=== PATIENT | male | born 1950 | race Caucasian/White ===

== ENCOUNTER 2019-05-08 02:01 | Emergency (ER) | payer MEDICARE ==
[~2019-05-08 02:01] MED LIST: niCARdipine 20 MG in SODIUM CHLORIDE 0.9% 192 ML IV ONE
[2019-05-08] MEDS ORDERED: SODIUM CHLORIDE 0.9% 1,000 ML IV STA (02:03)
[2019-05-08] MEDS ORDERED: ETOMIDATE 2 MG/ML 10 ML VIAL IVP STA (02:14)
[2019-05-08] MEDS: LABETALOL 5 MG/ML VIAL MDV IVP ONE ×2 (02:15→02:40)
[2019-05-08] MEDS ORDERED: ROCURONIUM BROMIDE 10 MG/ML 5 ML VIAL IV ONE (02:15)
--- NOTE | 2019-05-08 02:19 | CT ---
EXAMINATION TYPE: CT brain wo con DATE OF EXAM: 05/08/2019 COMPARISON: None HISTORY: stroke CT DLP: 1215.4 mGycm Automated exposure control for dose reduction was used. Multiple axial sections were obtained of the brain without contrast. There is large acute hemorrhage involving the left cerebral hemisphere in the subcutaneous pleural sp rashard. Hemorrhage measures up to 15 mm in thickness. There is midline shift to the right side. There is effacement of the left lateral ventricle. Third ventricle is shifted to the right side. There is eff acement of the third ventricle. Cerebellum is intact. The perimesencephalic cisterns appear fairly normal. I see no evidence of uncal herniation. The calvarium is intact. I see no definite cerebral parenchymal hemorrhage. IMPRESSION: Large left hemisphere acute subdural hemorrhage with mass effect. This exam was discussed with Dr. Torres at 2:30 AM.
--- NOTE | 2019-05-08 02:20 | ED ---
Altered Mental Status HPI - General Stated Complaint: Weakness Time Seen by Provider: 05/08/19 02:02 Source: patient Mode of arrival: EMS Limitations: no limitations - History of Present Illness Initial Comments: Parrish is a 68yo M with a past medical history of atrial fibrillation on Coumadin. Patient is brought to the ER today via ambulance for evaluation of a headache and now unresponsiveness. History is provided by the and EMS. reports that has been worked afternoon shifting returned home around 9 PM. At that time he fell asleep in his recliner, she states that he usually snores very loud to she prefer he sleep on his recliner rather than in their bedroom. She reports that she heard him wake around midnight and began complaining of a headache. Headache progressively worsened at which time he decided to come to the hospital and 911 was called around 1:45 in the morning. EMS arrived on scene the patient was awake alert oriented and speaking to them but complaining of a severe headache. In route to the hospital upon laying down the patient became unresponsive but was still breathing spontaneously, was noted to be profoundly hypertensive. Of note the reports that the patient's sister of a spontaneous subdural hemorrhage in 2015. - Related Data Home Medications Medication Instructions Recorded Confirmed Carvedilol [Coreg] 12.5 mg PO DAILY 07/14/15 07/14/15 Lisinopril-Hctz 10-12.5 mg 1 tab PO DAILY 07/14/15 07/14/15 [Zestoretic 10-12.5] Multivitamin [Men's Multi-Vitamin] 1 each PO DAILY 07/14/15 07/14/15 Omeprazole 20 mg PO DAILY 07/14/15 07/14/15 Pravastatin Sodium [Pravachol] 40 mg PO DAILY 07/14/15 07/14/15 Rivaroxaban [Xarelto] 20 mg PO DAILY 07/14/15 07/14/15 metFORMIN HCL 1,000 mg PO DAILY 07/14/15 07/14/15 Allergies Allergy/AdvReac Type Severity Reaction Status Date / Time IVP dye Allergy Rash/Hives Uncoded 07/14/15 06:37 Review of Systems ROS Statement: Those systems with pertinent positive or pertinent negative responses have been documented in the HPI. ROS Other: All systems not noted in ROS Statement are negative. Past Medical History Past Medical History: Atrial Fibrillation, Diabetes Mellitus, Hypertension History of Any Multi-Drug Resistant Organisms: None Reported Past Surgical History: Back Surgery Past Psychological History: No Psychological Hx Reported Smoking Status: Former smoker Past Alcohol Use History: None Reported, Rare Past Drug Use History: None Reported General Exam - General Exam Comments Initial Comments: Physical Exam GENERAL: Patient is well-developed and well-nourished. Unresponsive HENT: Normocephalic, Atraumatic. Upper dentures not in place, there is a laceration to the gums concerning for patient possibly having had some seizure activity. EYES: Right eye dilated 5mm, non-reactibe Left eye 3mm, reactive PULMONARY: Vel arriaga respirations CTAB CARDIOVASCULAR: Irregularly irregular, initially bradycardic however then tachycardic ABDOMEN: Soft and nontender with normal bowel sounds. SKIN: Pale : Normal external genitalia Patient incontinent of urine NEUROLOGIC: Unresponsive GCS 3 MUSCULOSKELETAL: No obvious injuries PSYCHIATRIC: Unable to assess Limitations: no limitations Course Vital Signs 05/08/19 05/08/19 05/08/19 02:06 02:15 02:30 Temperature 97.6 F Pulse Rate 110 H 90 98 Respiratory 19 18 18 Rate Blood Pressure 176/125 191/126 169/123 O2 Sat by Pulse 98 100 100 Oximetry 05/08/19 05/08/19 05/08/19 02:45 03:00 03:15 Temperature Pulse Rate 88 92 79 Respiratory 17 16 16 Rate Blood Pressure 141/90 132/88 134/77 O2 Sat by Pulse 100 100 100 Oximetry 05/08/19 05/08/19 03:30 03:45 Temperature Pulse Rate 90 90 Respiratory 16 16 Rate Blood Pressure 113/82 112/86 O2 Sat by Pulse 100 100 Oximetry Procedures - Intubation Sedative: Etomidate Paralytic: Rocuronium Laryngoscope: Jayleen Size: 4 Assist Device Used: fiber optic device ET Tube Size: 8 ET Tube Uncuffed: No Tube Secured Depth (cm): 25 Tube Secured Location: teeth Tube Placement Confirmation: visualized tube passing through cords, equal breath sounds bilaterally, no breath sounds over epigastrium, confirmation by capnometry Patient Tolerated Procedure: well, no complications Medical Decision Making - Medical Decision Making Patient was seen and evaluated immediately upon arrival to the emergency department Primary survey was performed with patient on the EMS gurney decision was made to activate a code stroke patient was transferred directly to computed tomography scan as there is a high concern for acute cranial hemorrhagic event due to the patient's profound hypertension, bradycardia irregular breathing and unresponsiveness While lying flat patient was noted to be profoundly hypertensive and bradycardic I evaluated the computed tomography scan as it was done which is concerning for an acute subdural hemorrhage The patient was transferred back to the resuscitation bay and prepared for intubation due to decreased mental status Neurosurgery at [facility] was paged RSI medications etomidate and rocuronium were used Patient was intubated without difficulty, patient had no episodes of hypoxia but was noted to become quite tachycardic during intubation Head of the bed was elevated after intubation Attempts were made to place an OG however were unsuccessful and patient was noted to have some significant bleeding, at this time we will refrain Patient care was discussed with the stroke physician, advised that we have an acute atraumatic subdural on patient on Coumadin. Considering the family history he recommended CTA be obtained. IV labetalol push dose was given for hypertension Cardine drip was ordered for blood pressure management Vitamin K was ordered to reverse anticoagulation Patient was noted to have some movement of the upper extremities, uncertain if this is seizure activity or reaction to intubation Propofol for sedation Patient care was discussed with the ER physician at [facility] Dr. Abad who accepts transfer once the patient has been accepted by neurosurgery Patient care was discussed with neurosurgeon Dr. Lynch, patient's history, medications, vital signs, CT findings and neurologic status were discussed. He agrees at this time the patient is critical. Agrees with management thus far and recommends transfer for surgical intervention. CT images were evaluated by Dr. Lynch prior to transfer. Patient's blood pressure improved with Cardene and propofol, however patient was noted to have some hypotension, both Cardine and propofol were titrated down patient remained appropriately sedated. ABG was obtained and was within normal limits, ventilator settings will continue as ordered At the time of transfer patient's blood pressure had improved, heart rate was stable in the 80s to 100s, neuro status remained unchanged, patient was recei ving Cardene and propofol. Patient transferred to [facility] priority one in critical condition. - Lab Data Result diagrams: 05/08/19 02:17 05/08/19 02:17 Lab Results 05/08/19 05/08/19 05/08/19 Range/Units 02:17 02:17 02:17 WBC 13.9 H (3.8-10.6) k/uL RBC 4.81 (4.30-5.90) m/uL Hgb 13.7 (13.0-17.5) gm/dL Hct 44.7 (39.0-53.0) % MCV 92.7 (80.0-100.0) fL MCH 28.4 (25.0-35.0) pg MCHC 30.6 L (31.0-37.0) g/dL RDW 13.4 (11.5-15.5) % Plt Count 277 (150-450) k/uL Neutrophils % 71 % Lymphocytes % 21 % Monocytes % 4 % Eosinophils % 3 % Basophils % 0 % Neutrophils # 9.8 H (1.3-7.7) k/uL Lymphocytes # 2.9 (1.0-4.8) k/uL Monocytes # 0.6 (0-1.0) k/uL Eosinophils # 0.4 (0-0.7) k/uL Basophils # 0.1 (0-0.2) k/uL PT 32.0 H (9.0-12.0) sec INR 3.3 H (<1.2) APTT 29.6 (22.0-30.0) sec Sample Site ABG pH (7.35-7.45) ABG pCO2 (35-45) mmHg ABG pO2 (83-108) mmHg ABG HCO3 (21-25) mmol/L ABG Total CO2 (19-24) mmol/L ABG O2 Saturation (94-97) % ABG Base Excess mmol/L Rodriguez Test FiO2 % Sodium 141 (137-145) mmol/L Potassium 4.1 (3.5-5.1) mmol/L Chloride 103 (98-107) mmol/L Carbon Dioxide 26 (22-30) mmol/L Anion Gap 12 mmol/L BUN 18 (9-20) mg/dL Creatinine 0.96 (0.66-1.25) mg/dL Est GFR (CKD-EPI)AfAm >90 (>60 ml/min/1.73 sqM) Est GFR (CKD-EPI)NonAf 83 (>60 ml/min/1.73 sqM) Glucose 226 H (74-99) mg/dL POC Glucose (mg/dL) (75-99) mg/dL POC Glu Emergency Spill Response Technician ID Calcium 8.5 (8.4-10.2) mg/dL Total Bilirubin 0.6 (0.2-1.3) mg/dL AST 40 (17-59) U/L ALT 23 (4-49) U/L Alkaline Phosphatase 65 (38-126) U/L Total Creatine Kinase (55-170) U/L CK-MB (CK-2) (0.0-2.4) ng/mL CK-MB (CK-2) Rel Index Troponin I (0.000-0.034) ng/mL Total Protein 7.4 (6.3-8.2) g/dL Albumin 4.1 (3.5-5.0) g/dL 05/08/19 05/08/19 05/08/19 Range/Units 02:17 03:00 03:13 WBC (3.8-10.6) k/uL RBC (4.30-5.90) m/uL Hgb (13.0-17.5) gm/dL Hct (39.0-53.0) % MCV (80.0-100.0) fL MCH (25.0-35.0) pg MCHC (31.0-37.0) g/dL RDW (11.5-15.5) % Plt Count (150-450) k/uL Neutrophils % % Lymphocytes % % Monocytes % % Eosinophils % % Basophils % % Neutrophils # (1.3-7.7) k/uL Lymphocytes # (1.0-4.8) k/uL Monocytes # (0-1.0) k/uL Eosinophils # (0-0.7) k/uL Basophils # (0-0.2) k/uL PT (9.0-12.0) sec INR (<1.2) APTT (22.0-30.0) sec Sample Site rbrac ABG pH 7.39 (7.35-7.45) ABG pCO2 44 (35-45) mmHg ABG pO2 281 H (83-108) mmHg ABG HCO3 27 H (21-25) mmol/L ABG Total CO2 28 H (19-24) mmol/L ABG O2 Saturation 98.3 H (94-97) % ABG Base Excess 1.5 mmol/L Rodriguez Test Yes FiO2 100 % Sodium (137-145) mmol/L Potassium (3.5-5.1) mmol/L Chloride (98-107) mmol/L Carbon Dioxide (22-30) mmol/L Anion Gap mmol/L BUN (9-20) mg/dL Creatinine (0.66-1.25) mg/dL Est GFR (CKD-EPI)AfAm (>60 ml/min/1.73 sqM) Est GFR (CKD-EPI)NonAf (>60 ml/min/1.73 sqM) Glucose (74-99) mg/dL POC Glucose (mg/dL) 225 H (75-99) mg/dL POC Glu Emergency Spill Response Technician ID Sharath Eden Calcium (8.4-10.2) mg/dL Total Bilirubin (0.2-1.3) mg/dL AST (17-59) U/L ALT (4-49) U/L Alkaline Phosphatase (38-126) U/L Total Creatine Kinase 108 (55-170) U/L CK-MB (CK-2) 1.3 (0.0-2.4) ng/mL CK-MB (CK-2) Rel Index 1.2 Troponin I <0.012 (0.000-0.034) ng/mL Total Protein (6.3-8.2) g/dL Albumin (3.5-5.0) g/dL Critical Care Time Critical Care Time: Yes Total Critical Care Time: 90 Critical Care Time: Critical care time was exclusive of separately billable procedures and treating other patients and teaching time. Critical care was necessary to treat or prevent imminent or life-threatening deterioration. Given the critical condition in which the patient arrived, the patient was i mmediately assessed by myself and the nurse, and cardiac monitoring initiated due to the potential for rapid decompensation of the patient's clinical condition. During the course of the patients stay, I spent a considerable amount of time at the bedside performing serial re-evaluations of the patient's hemodynamic and clinical status because of the recognized potential threat to life or limb in this condition. I then had a chance to review not only all of the available current laboratory and radiographic studies obtained today, but I also reviewed old records available to me at the time. Additionally, any ancillary information available including agricultural chemist records were reviewed. Sequential vital signs were obtained. Disposition Clinical Impression: Subdural hemorrhage Disposition: OTHER INSTITUTION NOT DEFINED Condition: Critical Referrals: Julia Bojorquez DO [Primary Care Provider] - 1-2 days - Out of Hospital Transfer - Req. Specs Out of Hospital Transfer - Requested Specifics: Other Emergency Center ([facility])
[2019-05-08] MEDS ORDERED: methylPREDNISolone SOD SUCCI 125 MG/2 ML VIAL IV STA (02:22)
[2019-05-08] MEDS ORDERED: diphenhydrAMINE 50 MG/ML 1 ML VIAL IVP STA (02:22)
[2019-05-08] MEDS ORDERED: FAMOTIDINE 20 MG/2 ML VIAL IV STA (02:22)
[2019-05-08 02:36] LABS: Basophils # (A) 0.1 k/uL (0-0.2); Basophils % (A) 0 %; Eosinophils # (A) 0.4 k/uL (0-0.7); Eosinophils % (A) 3 %; HCT 44.7 % (39.0-53.0); HGB 13.7 gm/dL (13.0-17.5); Lymphocytes # (A) 2.9 k/uL (1.0-4.8); Lymphocytes % (A) 21 %; MCH 28.4 pg (25.0-35.0); MCHC 30.6 g/dL (31.0-37.0); MCV 92.7 fL (80.0-100.0); Monocytes # (A) 0.6 k/uL (0-1.0); Monocytes % (A) 4 %; Neutrophils # (A) 9.8 k/uL (1.3-7.7); Neutrophils % (A) 71 %; Platelet Count 277 k/uL (150-450); RBC 4.81 m/uL (4.30-5.90); RDW 13.4 % (11.5-15.5); WBC 13.9 k/uL (3.8-10.6)
[2019-05-08] MEDS ORDERED: PHYTONADIONE 10 MG in SODIUM CHLORIDE 0.9% 50 ML IVPB ONE (02:40)
[2019-05-08 02:46] LABS: ALT 23 U/L (4-49); AST 40 U/L (17-59); African American GFR (CKD) >90 (>60 ml/min/1.73 sqM); Albumin 4.1 g/dL (3.5-5.0); Alkaline Phosphatase 65 U/L (38-126); Anion Gap 12 mmol/L; Blood Urea Nitrogen 18 mg/dL (9-20); Calcium 8.5 mg/dL (8.4-10.2); Carbon Dioxide 26 mmol/L (22-30); Chloride 103 mmol/L (98-107); Creatine Kinase 108 U/L (55-170); Glucose 226 mg/dL (74-99); INR 3.3 (<1.2); Non-African American GFR(CKD) 83 (>60 ml/min/1.73 sqM); Partial Thromboplastin Time 29.6 sec (22.0-30.0); Sodium 141 mmol/L (137-145); Total Bilirubin 0.6 mg/dL (0.2-1.3); Total Protein 7.4 g/dL (6.3-8.2)
[2019-05-08 02:58] LABS: Creatine Kinase MB 1.3 ng/mL (0.0-2.4); Troponin I <0.012 ng/mL (0.000-0.034)
--- NOTE | 2019-05-08 03:00 | XR ---
EXAMINATION TYPE: XR chest 1V portable DATE OF EXAM: 05/08/2019 COMPARISON: NONE HISTORY: Respiratory failure TECHNIQUE: Single view FINDINGS: Endotracheal tube is 5.5 cm from the jon. Lungs are clear of consolidation. There is coa rsening of the lung markings. There are chest leads. There is no pleural effusion. IMPRESSION: No heart failure. Mild pulmonary fibrotic changes.
[2019-05-08 03:01] LABS: Glucose,Whole Blood 225 mg/dL (75-99)
[2019-05-08 03:01] LABS: Potassium 4.1 mmol/L (3.5-5.1)
[2019-05-08] MEDS ORDERED: PROPOFOL 1,000 MG in EMPTY BAG 1 BAG IV ONE ×2 (03:06→03:15)
[2019-05-08 03:08] VITALS: TEMP 97.6
[2019-05-08 03:13] LABS: ABG Base Excess 1.5 mmol/L; ABG HCO3 27 mmol/L (21-25); ABG Oxygen Saturation 98.3 % (94-97); ABG PCO2 44 mmHg (35-45); ABG PH 7.39 (7.35-7.45); ABG PO2 281 mmHg (83-108); ABG TCO2 28 mmol/L (19-24); Allen Test Performed? Yes
[2019-05-08 03:14] VITALS: RESP 16
--- NOTE | 2019-05-08 03:51 | CT ---
EXAMINATION TYPE: CT angio head neck DATE OF EXAM: 05/08/2019 COMPARISON: None HISTORY: stroke CT DLP: 748.7 mGycm Automated exposure control for dose reduction was used. CONTRAST: Performed with IV Contrast, patient injected with 65 mL of Isovue 370. Multiple axial sections were obtained from the aortic arch to the vertex of the brain with intravenou s contrast Isovue 65 mL. FINDINGS: There is normal branching pattern of the great vessels on the aortic arch. There is bilateral arteria l flow in the subclavian arteries. Endotracheal tube is present. There is arterial flow in both vertebral arteries which are fairly symmetric. There is arterial flow in the common internal and external carotid arteries bilaterally. There is no evidence of carotid or vertebral artery aneurysm or dissection. There is arterial flow in the vertebrobasilar artery system. There is arterial flow in the anterior m iddle and posterior cerebral arteries. There is mass effect with large subdural hemorrhage on the lef t cerebral hemisphere with shift of the midline to the right side. There is effacement of the left la teral ventricle and the third ventricle. I see no evidence of arterial stenosis. There is no evidence of intracranial aneurysm or neovascularity. There is normal contrast opacification of the venous sin uses. IMPRESSION: Large left cerebral hemisphere subdural acute hematoma. Significant mass effect. No intracranial stewart ographic abnormality identified. Normal CT angiogram of the neck.
[2019-05-08 03:53] VITALS: PULSE 90
[2019-05-08 03:54] VITALS: BP 112/86
== END 2019-05-08 04:25 | disposition other institution (70) ==
LOC: EC 02:01
DX: I62.01 Nontraumatic acute subdural hemorrhage (principal); I48.91 Unspecified atrial fibrillation; S01.512A Laceration without foreign body of oral cavity, initial encounter; I10 Essential (primary) hypertension; E11.9 Type 2 diabetes mellitus without complications; Z79.01 Long term (current) use of anticoagulants; Z79.84 Long term (current) use of oral hypoglycemic drugs; Z91.041 Radiographic dye allergy status; Z79.899 Other long term (current) drug therapy; Z87.891 Personal history of nicotine dependence; X58.XXXA Exposure to other specified factors, initial encounter
CPT/HCPCS: 99291; 99292; 96365; 96367; 96375 ×4; 31500; 36415; 36600; 93005; 80053; 82550; 82553; 82805; 84484; 85025; 85610; 85730; 71045; 70496; 70450; 70498; J3430; J1200; J2930; J2704; Q9967; 94002